=== PATIENT | female | born 1945 | race Caucasian/White ===

== ENCOUNTER 2016-07-20 13:01 | Emergency (ER) | payer OTHER, BC ==
[~2016-07-20] VITALS: Ht 160 cm; Wt 90.6 kg
[~2016-07-20 13:01] MED LIST: ACIPHEX20 MG; ASPIR 8181 M1 PO; ASPIRIN81 M1 PO; BENICAR5 MG; CALCIUM 600 +1 EA12 PO; CALCIUM 600 +1 EA15 PO; CIPRO500 MG PO; GABAPENTIN100 MG PO; GABAPENTIN600 MG PO; HYDROCHLOROTHIA25 MG PO; K-DUR10 MEQ PO; KEFLEX500 MG PO; KEPPRA500 MG PO; LEVETIRACETAM500 MG PO; LISINOPRIL10 MG PO; MYRBETRIQ50 MG PO; POTASSIUM CHLO10 ME4 PO; PRAVASTATIN SOD40 MG PO; TIZANIDINE HCL2 MG PO; ZANTAC150 MG PO
[2016-07-20 14:25] LABS: ADD MIUA? YES; BILIRUBIN NEGATIVE; BLOOD NEGATIVE; COLOR YELLOW ((YELLOW)); GLUCOSE (STRIP) NEGATIVE; KETONES NEGATIVE; LEUKOCYTES MODERATE; NITRITE NEGATIVE; PROTEIN (STRIP) NEGATIVE; SPECIFIC GRAVITY 1.012 (1.000-1.030); UROBILINOGEN 0.2 MG/DL (0.2-1.0)
[2016-07-20 14:37] LABS: BACTERIA NONE SEEN /HPF; EPITHELIAL CELLS 1+ /HPF; MUCUS TRACE /LPF; RED BLOOD CELLS 0-5 /HPF (0-5); WHITE BLOOD CELLS 15-20 /HPF (0-5)
[2016-07-20 15:40] LABS: HEMATOCRIT 41.7 % (36.0-46.0); MCH 26.9 PG (29.0-34.0); MCHC 31.9 G/DL (30.0-36.0); MCV 84.2 FL (83-99); MEAN PLAT.VOLUME 10.1 uM^3 (9.5-12.4); PLATELET COUNT 229 K/uL (156-360); RBC DIS.WIDTH-CV 13.8 % (11.8-14.6); RBC DIS.WIDTH-SD 41.8 % (39-53); RED BLOOD COUNT 4.95 M/uL (3.80-5.20); WHITE BLOOD COUNT 11.4 K/uL (4.1-10.2)
[2016-07-20 15:49] LABS: CHLORIDE 105 mEq/L (99-109); POTASSIUM 4.1 mEq/L (3.7-5.4); SODIUM 142 mEq/L (136-147)
[2016-07-20 15:50] LABS: GLUCOSE 81 mg/dL (70-99)
[2016-07-20 15:52] LABS: ANION GAP 9 MEQ/L (2-14)
[2016-07-20 15:54] LABS: GFR ESTIMATE (CALCULATED) > 59 mL/min/
[2016-07-20 15:55] LABS: UREA NITROGEN (BUN) 20 mg/dL (9-23)
[2016-07-20 16:01] LABS: TROP-I INTERPRETATION NEGATIVE; TROPONIN-I 0.01 ng/mL (0.0-0.30)
[2016-07-20 18:18] VITALS: BP 112/66
== END 2016-07-20 18:24 | disposition left against medical advice (07) ==
LOC: EME 13:01
PROVIDERS: Emergency Medicine
DX: R51 Headache (principal); D72.829 Elevated white blood cell count, unspecified; I10 Essential (primary) hypertension; Z86.73 Personal history of transient ischemic attack (TIA), and cerebral infarction without residual deficits; K21.9 Gastro-esophageal reflux disease without esophagitis; Z98.2 Presence of cerebrospinal fluid drainage device; Z88.8 Allergy status to other drugs, medicaments and biological substances; Z88.1 Allergy status to other antibiotic agents; Z91.048 Other nonmedicinal substance allergy status
CPT/HCPCS: 70250; 70450; 71010; 72020; 74000; 80048; 81003; 84484; 85027; 93005; 99281; 99285; J0780; J1200

== ENCOUNTER 2018-01-06 19:53 | Observation (INO) | payer OTHER, BC ==
[~2018-01-06] VITALS: Ht 160 cm; Wt 93.7 kg
[2018-01-06 20:21] LABS: BASOPHIL (%) 0.6 % (0-1); BASOPHIL COUNT 0.1 K/uL (0-0.1); EOSINOPHIL (%) 2.1 % (0-5); EOSINOPHIL COUNT 0.2 K/uL (0-0.3); HEMATOCRIT 37.9 % (36.0-46.0); HEMOGLOBIN 12.3 G/DL (11.9-15.5); IMMATURE GRANULOCYTE (%) 0.4 % (0.0-0.7); LYMPHOCYTE (%) 23.9 % (15-42); LYMPHOCYTE COUNT 2.4 K/uL (1.0-2.8); MCH 27.5 PG (29.0-34.0); MCHC 32.5 G/DL (30.0-36.0); MCV 84.6 FL (83-99); MONOCYTE (%) 8.7 % (3-12); MONOCYTE COUNT 0.9 K/uL (0-0.8); NEUTROPHIL (%) 64.3 % (45-76); NEUTROPHIL COUNT 6.5 K/uL (1.8-6.4); PLATELET COUNT 234 K/uL (156-360); RBC DIS.WIDTH-CV 13.7 % (11.8-14.6); RBC DIS.WIDTH-SD 42.4 % (39-53); RED BLOOD COUNT 4.48 M/uL (3.80-5.20); WHITE BLOOD COUNT 10.1 K/uL (4.1-10.2)
[2018-01-06 20:41] LABS: TROP-I INTERPRETATION NEGATIVE; TROPONIN-I < 0.01 ng/mL (0.0-0.30)
[2018-01-06 20:47] LABS: CHLORIDE 102 MEQ/L (99-109); POTASSIUM 3.9 MEQ/L (3.7-5.4); SODIUM 140 MEQ/L (136-147)
[2018-01-06 20:53] LABS: CREATININE 0.9 MG/DL (0.6-1.3); GFR ESTIMATE (CALCULATED) > 59 mL/min/; GLUCOSE 139 mg/dL (70-99); UREA NITROGEN (BUN) 13 mg/dL (9-23)
[2018-01-06 21:03] LABS: ALBUMIN 3.8 G/DL (3.2-4.8); DIRECT BILIRUBIN 0.1 mg/dL (0.0-0.3); TOTAL BILIRUBIN 0.2 MG/DL (0.0-1.0)
[2018-01-06 21:09] LABS: ALKALINE PHOSPHATASE 120 IU/L (3-129); ALT (GPT) 13 IU/L (3-49); AST (GOT) 15 IU/L (2-34); TOTAL PROTEIN 6.5 G/DL (6.4-8.3)
[2018-01-06 21:12] LABS: APPEARANCE CLOUDY ((CLEAR)); BILIRUBIN NEGATIVE; BLOOD NEGATIVE; GLUCOSE (STRIP) NEGATIVE; KETONES NEGATIVE; LEUKOCYTES MODERATE; NITRITE NEGATIVE; PROTEIN (STRIP) NEGATIVE; SPECIFIC GRAVITY 1.008 (1.000-1.030); UROBILINOGEN 0.2 MG/DL (0.2-1.0)
[2018-01-06 21:23] LABS: COLOR YELLOW ((YELLOW))
[2018-01-06 21:29] LABS: BACTERIA RARE /HPF; EPITHELIAL CELLS RARE /HPF; MUCUS NONE SEEN /LPF; RED BLOOD CELLS 0-5 /HPF (0-5); WHITE BLOOD CELLS 15-20 /HPF (0-5)
[2018-01-06] MEDS ORDERED: LO-DOSE ASPIRIN81 M1 PO (21:58)
[2018-01-06] MEDS ORDERED: MICROZIDE12.5 M1 PO (21:59)
[2018-01-06] MEDS ORDERED: PRAVACHOL40 MG PO (22:00)
[2018-01-06] MEDS ORDERED: GUMMI BEAR MUL1 EACH PO (22:01)
[2018-01-06] MEDS ORDERED: ZYRTEC10 M3 PO (22:01)
[2018-01-06] MEDS ORDERED: FIBER THERAPY0.52 GM PO (22:01)
[2018-01-07 01:17] VITALS: BP 149/88
[2018-01-07 04:00] VITALS: BP 142/84
[2018-01-07 07:28] VITALS: BP 174/84
[2018-01-07 10:58] VITALS: BP 143/72
[2018-01-07] MEDS ORDERED: CEFDINIR300 MG PO (12:39)
== END 2018-01-07 13:33 | disposition home or self-care (01) ==
LOC: EME 19:53 → EDOF 22:58 → ENRESERV 23:02 → EDOF 01-07 00:58 → 5SOUTH 01-07 01:03 → ENPENDDIS 01-07 13:00 → 5SOUTH 01-07 13:33
PROVIDERS: Physician Assistant
DX: R26.89 Other abnormalities of gait and mobility (principal); I69.351 Hemiplegia and hemiparesis following cerebral infarction affecting right dominant side; I69.320 Aphasia following cerebral infarction; I10 Essential (primary) hypertension; F41.9 Anxiety disorder, unspecified; K21.9 Gastro-esophageal reflux disease without esophagitis; Z60.2 Problems related to living alone; Z98.2 Presence of cerebrospinal fluid drainage device; Z68.37 Body mass index [BMI] 37.0-37.9, adult; I69.392 Facial weakness following cerebral infarction; Z79.82 Long term (current) use of aspirin; Z88.1 Allergy status to other antibiotic agents; Z91.048 Other nonmedicinal substance allergy status
CPT/HCPCS: 70450; 80048; 80076; 81003; 84484; 85025; 87086; 93005; 99281; 99285; G0378; J0696; J1644